=== PATIENT | female | born 1990 | race African-American/Black ===

== ENCOUNTER 2016-06-30 22:36 | Emergency (ER) | payer OTHER ==
[~2016-06-30] VITALS: Ht 157.5 cm; Wt 54.5 kg
[~2016-06-30 22:36] MED LIST: BLOOD PRESSURE MED; CEFTIN 250250 MG/TAB PO; CEFTIN500 MG PO; CEPHALEXIN500 M1 PO; CIPRO 500MG TA500 MG PO; FLAGYL500 MG PO; FLEXERIL 1010 MG/TAB PO; IBU800 M1 PO; LORTAB 5/500 501 TAB PO; MOTRIN800 MG PO; NO HOME MEDICATIONS; NORCO 325 MG-51 TAB PO; PERCOCET 325 MG1 TA2 PO; PHENERGAN 25 TA25 MG PO; PHENERGAN25 MG RC; PREDNISONE10 MG PO; PRENATAL1 TA1 PO; VICODIN 5/5001 UDTAB PO; ZOFRAN 4MG T4 MG/TAB PO; ZYRTEC10 MG PO; [UNRECOGNIZED DRUG - OTHER]
[2016-06-30 22:40] VITALS: BP 165/81; TEMP 98.7
[2016-06-30 23:07] LABS: PH 6 (5-8); SQUAMOUS EPITHELIAL 0-2 /hpf; URINE APPEARANCE Clear; URINE BACTERIA None Seen /hpf; URINE BILIRUBIN Negative (NEGATIVE); URINE BLOOD Negative (NEGATIVE); URINE COLOR Straw; URINE GLUCOSE Negative (NEGATIVE); URINE KETONE Negative (NEGATIVE); URINE RBC 0-2 /hpf; URINE UROBILINOGEN Negative (NEGATIVE); URINE WBC 0-2 /hpf
[2016-07-01] MEDS ORDERED: DOXYCYCLINE 10100 MG PO (00:30)
[2016-07-01] MEDS ORDERED: FLAGYL500 MG PO (00:30)
[2016-07-01 00:43] VITALS: PULSE 90
[2016-07-01 02:15] LABS: CHLAMYDIA/TRACH by PCR Female NOT DETECTED; NEISSERIA GON by PCR Female NOT DETECTED
== END 2016-07-01 00:43 | disposition home or self-care (01) ==
LOC: COL.ER 22:36
PROVIDERS: Physician Assistant
DX: N76.4 Abscess of vulva (principal); N76.0 Acute vaginitis
CPT/HCPCS: J0696

== ENCOUNTER 2016-07-03 23:52 | Emergency (ER) | payer OTHER ==
[~2016-07-03] VITALS: Ht 157.5 cm; Wt 54.5 kg
[~2016-07-03 23:52] MED LIST changes: +DOXYCYCLINE 10100 MG PO
[2016-07-03 23:55] VITALS: TEMP 97.7
[2016-07-04 00:51] LABS: BASO % 0.5 % (0.0-2.0); EOS # 0.1 (0.0-0.7); EOS % 1.2 % (0-4.0); GRAN # 5.2 (1.4-6.5); GRAN % 63.1 % (42.2-75.2); HEMATOCRIT 42.7 % (37.0-47.0); HEMOGLOBIN 15.1 g/dl (12.5-16.0); LYMPH # 2.4 (1.2-3.4); LYMPH % 28.9 % (20.0-51.0); MEAN CELL VOLUME 88 fl (80.0-100.0); MEAN CORPUSCULAR HEMOGLOBIN 31 pg (27.0-31.0); MEAN CORPUSCULAR HGB CONC 35 g/dl (33.0-37.0); MONO # 0.5 (0.1-0.6); MONO % 5.8 % (1.7-9.3); PLATELET COUNT 194 K/mm3 (130-400); RED BLOOD COUNT 4.85 M/mm3 (4.10-5.30); WHITE BLOOD COUNT 8.3 K/mm3 (4.8-10.8)
[2016-07-04 01:06] LABS: ADJUSTED CALCIUM 9.4 mg/dL (8.4-10.2); ALANINE AMINOTRANSFERASE 26 U/L (9-52); ALBUMIN 4.7 gm/dL (3.5-5.0); ALKALINE PHOSPHATASE 57 U/L (50-136); ANION GAP 16 mmol/L (7-16); BILIRUBIN,TOTAL 0.6 mg/dL (0.0-1.0); BLOOD UREA NITROGEN 9 mg/dL (7-17); CARBON DIOXIDE 20 mmol/L (22-30); CHLORIDE 108 mmol/L (98-107); CREATININE, serum 0.85 mg/dL (0.52-1.25); GLUCOSE 119 mg/dL (74-106); LIPASE 45 U/L (23-300); SODIUM 143 mmol/L (137-145); TOTAL PROTEIN 7.7 gm/dL (6.4-8.2)
[2016-07-04 01:07] LABS: C-REACTIVE PROTEIN 0.5 mg/dL (0.0-0.9)
[2016-07-04 01:48] LABS: PH 9 (5-8); URINE APPEARANCE Cloudy; URINE BACTERIA Rare /hpf; URINE BILIRUBIN Negative (NEGATIVE); URINE BLOOD Negative (NEGATIVE); URINE COLOR Yellow; URINE GLUCOSE Negative (NEGATIVE); URINE KETONE Negative (NEGATIVE); URINE RBC 0-2 /hpf; URINE UROBILINOGEN Negative (NEGATIVE)
[2016-07-04] MEDS ORDERED: ZOFRAN 4MG T4 MG/TAB PO (02:11)
[2016-07-04] MEDS ORDERED: K-DUR20 MEQ PO (02:11)
[2016-07-04 02:22] VITALS: BP 121/85; PULSE 68
== END 2016-07-04 02:30 | disposition home or self-care (01) ==
LOC: COL.ER 23:52
PROVIDERS: Emergency Medicine
DX: R10.84 Generalized abdominal pain (principal); E87.6 Hypokalemia; R11.2 Nausea with vomiting, unspecified; R19.7 Diarrhea, unspecified; F17.210 Nicotine dependence, cigarettes, uncomplicated
CPT/HCPCS: J2270; J2405; J2550; J7030; Q9967

== ENCOUNTER 2016-11-04 09:13 | Observation (INO) | payer OTHER ==
[2016-11-04] VITALS (527 sets, daily range): BP systolic 125–135; BP diastolic 73–88; PULSE 71–94; TEMP 98.7–100.5; O2SAT 76–100
[~2016-11-04] VITALS: Ht 162.6 cm; Wt 52.6 kg
[~2016-11-04 09:13] MED LIST changes: +K-DUR20 MEQ PO
[2016-11-04 11:00] LABS: BASO % 0.2 % (0.0-2.0); EOS % 0.2 % (0-4.0); GRAN # 3.3 (1.4-6.5); GRAN % 68.8 % (42.2-75.2); HEMATOCRIT 41.9 % (37.0-47.0); HEMOGLOBIN 14.4 g/dl (12.5-16.0); LYMPH # 1.2 (1.2-3.4); LYMPH % 25.4 % (20.0-51.0); MEAN CELL VOLUME 91 fl (80.0-100.0); MEAN CORPUSCULAR HEMOGLOBIN 31 pg (27.0-31.0); MEAN CORPUSCULAR HGB CONC 34 g/dl (33.0-37.0); MEAN PLATELET VOLUME 10.7 fl (7.4-10.4); MONO # 0.3 (0.1-0.6); MONO % 5.2 % (1.7-9.3); PLATELET COUNT 170 K/mm3 (130-400); RED BLOOD COUNT 4.63 M/mm3 (4.10-5.30); REDCELL DISTRIBUTION WIDTH-CV 11.9 % (11.5-14.5); WHITE BLOOD COUNT 4.8 K/mm3 (4.8-10.8)
[2016-11-04 11:16] LABS: ADJUSTED CALCIUM 9.2 mg/dL (8.4-10.2); ALBUMIN 4.5 gm/dL (3.5-5.0); BILIRUBIN,TOTAL 0.6 mg/dL (0.0-1.0); CALCIUM 9.6 mg/dL (8.4-10.2); CREATININE, serum 0.73 mg/dL (0.52-1.25); POTASSIUM 3.6 mmol/L (3.4-5.0); TOTAL PROTEIN 7.3 gm/dL (6.4-8.2)
[2016-11-04 11:32] LABS: PROLACTIN 12.2 ng/mL (3.0-18.6)
[2016-11-04 11:38] LABS: PH 9 (5-8); URINE APPEARANCE Hazy; URINE BACTERIA None Seen /hpf; URINE BILIRUBIN Negative (NEGATIVE); URINE BLOOD Negative (NEGATIVE); URINE COLOR Yellow; URINE GLUCOSE Negative (NEGATIVE); URINE KETONE Negative (NEGATIVE); URINE RBC 0-2 /hpf; URINE UROBILINOGEN Negative (NEGATIVE)
[2016-11-04 14:47] LABS: AMPHETAMINE URINE NEGATIVE; BARBITURATES URINE NEGATIVE; BENZODIAZEPINES URINE POSITIVE; BUPRENORPHINE URINE NEGATIVE; METHADONE URINE NEGATIVE; OPIATES URINE NEGATIVE; OXYCODONE URINE NEGATIVE; PHENCYCLIDINE URINE NEGATIVE; PROPOXYPHENE URINE NEGATIVE; THC CANNABINOIDS URINE POSITIVE
[2016-11-04 20:12] LABS: PH 5 (5-8); URINE APPEARANCE Hazy; URINE BACTERIA Moderate /hpf; URINE BILIRUBIN Negative (NEGATIVE); URINE BLOOD Negative (NEGATIVE); URINE COLOR Amber; URINE GLUCOSE Negative (NEGATIVE); URINE KETONE 1+ (NEGATIVE); URINE UROBILINOGEN Negative (NEGATIVE)
[2016-11-05] VITALS (394 sets, daily range): BP systolic 125–129; BP diastolic 71–89; PULSE 76–95; TEMP 99.2–99.8; O2SAT 34–100
== END 2016-11-05 09:05 | disposition left against medical advice (07) ==
LOC: COL.ER 09:13 → ICU 13:06
PROVIDERS: Emergency Medicine; Internal Medicine
DX: R56.9 Unspecified convulsions (principal); R10.11 Right upper quadrant pain; N39.0 Urinary tract infection, site not specified; F41.9 Anxiety disorder, unspecified; F17.210 Nicotine dependence, cigarettes, uncomplicated; F12.90 Cannabis use, unspecified, uncomplicated; F15.90 Other stimulant use, unspecified, uncomplicated
CPT/HCPCS: G0378; J2060; J2405; J2550; J7030

== ENCOUNTER 2017-01-26 07:56 | Emergency (ER) | payer SELFPAY ==
[~2017-01-26] VITALS: Ht 157.5 cm; Wt 54.5 kg
[2017-01-26 07:57] VITALS: TEMP 97.8
[2017-01-26] MEDS ORDERED: NEXPLANON68 MG ID (08:03)
[2017-01-26 08:17] LABS: BASO % 0.4 % (0.0-2.0); EOS # 0.1 (0.0-0.7); EOS % 0.9 % (0-4.0); GRAN # 7.4 (1.4-6.5); HEMATOCRIT 44.7 % (37.0-47.0); HEMOGLOBIN 15.4 g/dl (12.5-16.0); LYMPH # 2.4 (1.2-3.4); LYMPH % 22.8 % (20.0-51.0); MEAN CELL VOLUME 92 fl (80.0-100.0); MEAN CORPUSCULAR HEMOGLOBIN 32 pg (27.0-31.0); MEAN CORPUSCULAR HGB CONC 35 g/dl (33.0-37.0); MEAN PLATELET VOLUME 10.7 fl (7.4-10.4); MONO # 0.6 (0.1-0.6); MONO % 5.2 % (1.7-9.3); PLATELET COUNT 191 K/mm3 (130-400); RED BLOOD COUNT 4.87 M/mm3 (4.10-5.30); WHITE BLOOD COUNT 10.5 K/mm3 (4.8-10.8)
[2017-01-26 08:29] LABS: ADJUSTED CALCIUM 9.1 mg/dL (8.4-10.2); ALBUMIN 4.9 gm/dL (3.5-5.0); BILIRUBIN,TOTAL 0.5 mg/dL (0.0-1.0); CALCIUM 9.8 mg/dL (8.4-10.2); CREATININE, serum 0.71 mg/dL (0.52-1.25)
[2017-01-26 08:31] LABS: C-REACTIVE PROTEIN 0.5 mg/dL (0.0-0.9)
[2017-01-26 08:48] LABS: COLLECTION METHOD CLEAN CATCH
[2017-01-26 08:56] LABS: PH 8 (5-8); URINE APPEARANCE Clear; URINE BACTERIA None Seen /hpf; URINE BILIRUBIN Negative (NEGATIVE); URINE BLOOD Negative (NEGATIVE); URINE COLOR Yellow; URINE GLUCOSE Negative (NEGATIVE); URINE KETONE Negative (NEGATIVE); URINE LEUKOCYTE ESTERASE Negative (NEGATIVE); URINE PROTEIN(semi-quant) Negative (NEGATIVE); URINE RBC 0-2 /hpf; URINE UROBILINOGEN Negative (NEGATIVE); URINE WBC 0-2 /hpf
[2017-01-26] MEDS ORDERED: CELEXA 20MG20 MG/TAB PO (10:01)
[2017-01-26 10:02] VITALS: BP 112/79; PULSE 92
== END 2017-01-26 10:09 | disposition home or self-care (01) ==
LOC: COL.ER 07:56
PROVIDERS: Family Medicine
DX: R10.84 Generalized abdominal pain (principal); G40.909 Epilepsy, unspecified, not intractable, without status epilepticus
CPT/HCPCS: J1885; J2060; J2405; J2550; J7030; J7050; Q9967

== ENCOUNTER 2017-01-28 07:34 | Emergency (ER) | payer SELFPAY ==
[~2017-01-28] VITALS: Ht 157.5 cm; Wt 56.8 kg
[~2017-01-28 07:34] MED LIST changes: +CELEXA 20MG20 MG/TAB PO; +NEXPLANON68 MG ID
[2017-01-28 07:37] VITALS: TEMP 96.8
[2017-01-28 08:17] LABS: COLLECTION METHOD CLEAN CATCH
[2017-01-28 08:26] LABS: BASO % 0.4 % (0.0-2.0); EOS # 0.1 (0.0-0.7); EOS % 0.9 % (0-4.0); GRAN # 5.1 (1.4-6.5); GRAN % 66.7 % (42.2-75.2); HEMATOCRIT 42.9 % (37.0-47.0); HEMOGLOBIN 14.3 g/dl (12.5-16.0); LYMPH % 26.3 % (20.0-51.0); MEAN CELL VOLUME 94 fl (80.0-100.0); MEAN CORPUSCULAR HEMOGLOBIN 31 pg (27.0-31.0); MEAN CORPUSCULAR HGB CONC 33 g/dl (33.0-37.0); MEAN PLATELET VOLUME 11.1 fl (7.4-10.4); MONO # 0.4 (0.1-0.6); MONO % 5.3 % (1.7-9.3); PLATELET COUNT 180 K/mm3 (130-400); RED BLOOD COUNT 4.55 M/mm3 (4.10-5.30); WHITE BLOOD COUNT 7.7 K/mm3 (4.8-10.8)
[2017-01-28 08:36] LABS: PH 8 (5-8); SQUAMOUS EPITHELIAL 0-2 /hpf; URINE APPEARANCE Clear; URINE BACTERIA None Seen /hpf; URINE BILIRUBIN Negative (NEGATIVE); URINE BLOOD Negative (NEGATIVE); URINE COLOR Straw; URINE GLUCOSE Negative (NEGATIVE); URINE KETONE Negative (NEGATIVE); URINE LEUKOCYTE ESTERASE Negative (NEGATIVE); URINE PROTEIN(semi-quant) Negative (NEGATIVE); URINE RBC 0-2 /hpf; URINE UROBILINOGEN Negative (NEGATIVE); URINE WBC 0-2 /hpf
[2017-01-28 08:38] LABS: ADJUSTED CALCIUM 9.2 mg/dL (8.4-10.2); ALANINE AMINOTRANSFERASE 40 U/L (9-52); ALBUMIN 4.9 gm/dL (3.5-5.0); ALKALINE PHOSPHATASE 54 U/L (50-136); AMYLASE 80 U/L (30-110); ANION GAP 9 mmol/L (7-16); BILIRUBIN,TOTAL 0.5 mg/dL (0.0-1.0); BLOOD UREA NITROGEN 14 mg/dL (7-17); CALCIUM 9.9 mg/dL (8.4-10.2); CARBON DIOXIDE 22 mmol/L (22-30); CHLORIDE 109 mmol/L (98-107); CREATININE, serum 0.82 mg/dL (0.52-1.25); GLUCOSE 102 mg/dL (74-106); LIPASE 54 U/L (23-300); POTASSIUM 4.1 mmol/L (3.4-5.0); SODIUM 140 mmol/L (137-145); TOTAL PROTEIN 7.9 gm/dL (6.4-8.2)
[2017-01-28 08:39] LABS: C-REACTIVE PROTEIN < 0.5 mg/dL (0.0-0.9)
[2017-01-28] MEDS ORDERED: ZOFRAN 4MG T4 MG/TAB PO ×2 (09:10→09:46)
[2017-01-28] MEDS ORDERED: CELEXA 20MG20 MG/TAB PO ×2 (09:46→13:36)
[2017-01-28 09:56] VITALS: BP 123/89; PULSE 72
[2017-01-28] MEDS ORDERED: ZOFRAN ODT4 MG PO (13:36)
[2017-01-29] MEDS ORDERED: PHENERGAN 25 TA25 MG PO (10:10)
== END 2017-01-28 09:56 | disposition home or self-care (01) ==
LOC: COL.ER 07:34
PROVIDERS: Nurse Practitioner
DX: R10.84 Generalized abdominal pain (principal); F17.210 Nicotine dependence, cigarettes, uncomplicated; Z98.890 Other specified postprocedural states
CPT/HCPCS: J1885; J2550

== ENCOUNTER 2017-01-29 07:52 | Emergency (ER) | payer SELFPAY ==
[~2017-01-29] VITALS: Ht 157.5 cm; Wt 56.8 kg
[~2017-01-29 07:52] MED LIST changes: +ZOFRAN ODT4 MG PO
[2017-01-29 07:56] VITALS: BP 135/65; TEMP 97
[2017-01-29 08:32] LABS: BASO % 0.3 % (0.0-2.0); EOS % 0.3 % (0-4.0); GRAN # 6.6 (1.4-6.5); HEMATOCRIT 44.5 % (37.0-47.0); HEMOGLOBIN 15.6 g/dl (12.5-16.0); LYMPH # 1.5 (1.2-3.4); LYMPH % 17.2 % (20.0-51.0); MEAN CELL VOLUME 90 fl (80.0-100.0); MEAN CORPUSCULAR HEMOGLOBIN 32 pg (27.0-31.0); MEAN CORPUSCULAR HGB CONC 35 g/dl (33.0-37.0); MEAN PLATELET VOLUME 12.2 fl (7.4-10.4); MONO # 0.5 (0.1-0.6); MONO % 5.7 % (1.7-9.3); PLATELET COUNT 172 K/mm3 (130-400); RED BLOOD COUNT 4.96 M/mm3 (4.10-5.30); WHITE BLOOD COUNT 8.7 K/mm3 (4.8-10.8)
[2017-01-29 09:01] LABS: ADJUSTED CALCIUM 9.6 mg/dL (8.4-10.2); ALBUMIN 4.9 gm/dL (3.5-5.0); BILIRUBIN,TOTAL 0.7 mg/dL (0.0-1.0); CALCIUM 10.3 mg/dL (8.4-10.2); CREATININE, serum 0.91 mg/dL (0.52-1.25); MAGNESIUM 1.7 mg/dL (1.6-2.3); POTASSIUM 3.9 mmol/L (3.4-5.0); TOTAL PROTEIN 7.9 gm/dL (6.4-8.2)
[2017-01-29] MEDS ORDERED: PHENERGAN 25 TA25 MG PO (10:10)
[2017-01-29 10:20] VITALS: PULSE 70
[2017-01-30] MEDS ORDERED: PHENERGAN 25 TA25 MG PO (05:18)
[2017-01-30] MEDS ORDERED: NEXIUM 20MG20 MG PO (05:18)
== END 2017-01-29 10:20 | disposition home or self-care (01) ==
LOC: COL.ER 07:52
PROVIDERS: Family Medicine; Physician Assistant
DX: R10.84 Generalized abdominal pain (principal); R11.2 Nausea with vomiting, unspecified; Z98.890 Other specified postprocedural states
CPT/HCPCS: J1885; J2550; J7030

== ENCOUNTER 2017-01-30 02:44 | Emergency (ER) | payer SELFPAY ==
[~2017-01-30] VITALS: Ht 157.5 cm; Wt 56.8 kg
[2017-01-30 02:48] VITALS: TEMP 97.4
[2017-01-30 03:13] LABS: BASO % 0.2 % (0.0-2.0); EOS # 0.1 (0.0-0.7); EOS % 0.7 % (0-4.0); GRAN # 5.4 (1.4-6.5); GRAN % 65.7 % (42.2-75.2); HEMATOCRIT 43.5 % (37.0-47.0); HEMOGLOBIN 14.9 g/dl (12.5-16.0); LYMPH # 2.2 (1.2-3.4); LYMPH % 27.2 % (20.0-51.0); MEAN CELL VOLUME 91 fl (80.0-100.0); MEAN CORPUSCULAR HEMOGLOBIN 31 pg (27.0-31.0); MEAN CORPUSCULAR HGB CONC 34 g/dl (33.0-37.0); MEAN PLATELET VOLUME 11.6 fl (7.4-10.4); MONO # 0.5 (0.1-0.6); MONO % 5.8 % (1.7-9.3); PLATELET COUNT 191 K/mm3 (130-400); RED BLOOD COUNT 4.78 M/mm3 (4.10-5.30); WHITE BLOOD COUNT 8.2 K/mm3 (4.8-10.8)
[2017-01-30 03:25] LABS: ADJUSTED CALCIUM 9.5 mg/dL (8.4-10.2); ALANINE AMINOTRANSFERASE 42 U/L (9-52); ALKALINE PHOSPHATASE 57 U/L (50-136); ANION GAP 14 mmol/L (7-16); BILIRUBIN,TOTAL 0.8 mg/dL (0.0-1.0); BLOOD UREA NITROGEN 15 mg/dL (7-17); CALCIUM 10.3 mg/dL (8.4-10.2); CARBON DIOXIDE 19 mmol/L (22-30); CHLORIDE 110 mmol/L (98-107); CREATININE, serum 1.01 mg/dL (0.52-1.25); GLUCOSE 101 mg/dL (74-106); LIPASE 49 U/L (23-300); POTASSIUM 3.6 mmol/L (3.4-5.0); SODIUM 143 mmol/L (137-145); TOTAL PROTEIN 8.2 gm/dL (6.4-8.2)
[2017-01-30 03:26] LABS: C-REACTIVE PROTEIN < 0.5 mg/dL (0.0-0.9)
[2017-01-30] MEDS ORDERED: NEXIUM 20MG20 MG PO (05:18)
[2017-01-30] MEDS ORDERED: PHENERGAN 25 TA25 MG PO (05:18)
[2017-01-30 05:36] VITALS: BP 116/77; PULSE 78
== END 2017-01-30 05:39 | disposition home or self-care (01) ==
LOC: COL.ER 02:44
PROVIDERS: Emergency Medicine
DX: R10.84 Generalized abdominal pain (principal); R11.2 Nausea with vomiting, unspecified; G43.909 Migraine, unspecified, not intractable, without status migrainosus; Z98.890 Other specified postprocedural states
CPT/HCPCS: J0780; J1200; J1630; J1885; J7030

== ENCOUNTER 2017-04-12 01:19 | Emergency (ER) | payer SELFPAY ==
[~2017-04-12] VITALS: Ht 160 cm; Wt 59.7 kg
[~2017-04-12 01:19] MED LIST changes: +NEXIUM 20MG20 MG PO
[2017-04-12 01:21] VITALS: BP 131/73; PULSE 108
[2017-04-12 02:00] LABS: BASO % 0.3 % (0.0-2.0); EOS % 0.3 % (0-4.0); GRAN # 5.2 (1.4-6.5); GRAN % 84.9 % (42.2-75.2); HEMATOCRIT 43.7 % (37.0-47.0); HEMOGLOBIN 15.2 g/dl (12.5-16.0); LYMPH # 0.4 (1.2-3.4); LYMPH % 5.9 % (20.0-51.0); MEAN CELL VOLUME 90 fl (80.0-100.0); MEAN CORPUSCULAR HEMOGLOBIN 31 pg (27.0-31.0); MEAN CORPUSCULAR HGB CONC 35 g/dl (33.0-37.0); MONO # 0.5 (0.1-0.6); MONO % 8.1 % (1.7-9.3); PLATELET COUNT 148 K/mm3 (130-400); RED BLOOD COUNT 4.85 M/mm3 (4.10-5.30); REDCELL DISTRIBUTION WIDTH-CV 11.9 % (11.5-14.5)
[2017-04-12 02:06] LABS: COLLECTION METHOD CLEAN CATCH
[2017-04-12 02:12] LABS: ALBUMIN 5.1 gm/dL (3.5-5.0); BILIRUBIN,TOTAL 0.4 mg/dL (0.0-1.0); C-REACTIVE PROTEIN 2.9 mg/dL (0.0-0.9); CALCIUM 9.6 mg/dL (8.4-10.2); CREATININE, serum 0.82 mg/dL (0.52-1.25); POTASSIUM 3.5 mmol/L (3.4-5.0); TOTAL PROTEIN 8.4 gm/dL (6.4-8.2)
[2017-04-12 02:13] LABS: MUCOUS Present /lpf; PH 5 (5-8); SQUAMOUS EPITHELIAL 20-50 /hpf; URINE APPEARANCE Cloudy; URINE BACTERIA Occasional /hpf; URINE BILIRUBIN Negative (NEGATIVE); URINE BLOOD Negative (NEGATIVE); URINE COLOR Yellow; URINE GLUCOSE Negative (NEGATIVE); URINE KETONE Negative (NEGATIVE); URINE LEUKOCYTE ESTERASE Trace (NEGATIVE); URINE NITRATE Negative (NEGATIVE); URINE PROTEIN(semi-quant) 1+ (NEGATIVE)
[2017-04-12 02:25] VITALS: TEMP 98.8
[2017-04-12 02:34] LABS: ERYTHROCYTE SEDIMENTATION RATE 13 mm/hr (0-20)
[2017-04-12] MEDS ORDERED: TAMIFLU 75MG75 MG PO (02:55)
== END 2017-04-12 04:20 | disposition home or self-care (01) ==
LOC: COL.ER 01:19
PROVIDERS: Emergency Medicine
DX: J10.1 Influenza due to other identified influenza virus with other respiratory manifestations (principal)
CPT/HCPCS: J1170; J1630; J1885; J7030

== ENCOUNTER 2017-05-01 06:32 | Emergency (ER) | payer SELFPAY ==
[~2017-05-01] VITALS: Ht 157.5 cm; Wt 59.1 kg
[~2017-05-01 06:32] MED LIST changes: +TAMIFLU 75MG75 MG PO
[2017-05-01 06:35] VITALS: TEMP 97.8
[2017-05-01 07:23] LABS: BASO % 0.3 % (0.0-2.0); EOS % 0.4 % (0-4.0); GRAN # 7.2 (1.4-6.5); GRAN % 69.5 % (42.2-75.2); HEMATOCRIT 44.4 % (37.0-47.0); HEMOGLOBIN 15.2 g/dl (12.5-16.0); LYMPH # 2.2 (1.2-3.4); LYMPH % 20.9 % (20.0-51.0); MEAN CELL VOLUME 89 fl (80.0-100.0); MEAN CORPUSCULAR HEMOGLOBIN 31 pg (27.0-31.0); MEAN CORPUSCULAR HGB CONC 34 g/dl (33.0-37.0); MEAN PLATELET VOLUME 11.2 fl (7.4-10.4); MONO # 0.9 (0.1-0.6); MONO % 8.5 % (1.7-9.3); PLATELET COUNT 209 K/mm3 (130-400); RED BLOOD COUNT 4.98 M/mm3 (4.10-5.30)
[2017-05-01 07:37] LABS: ALBUMIN 5.5 gm/dL (3.5-5.0); BILIRUBIN,TOTAL 0.9 mg/dL (0.0-1.0); C-REACTIVE PROTEIN 0.9 mg/dL (0.0-0.9); CALCIUM 10.6 mg/dL (8.4-10.2); CREATININE, serum 0.75 mg/dL (0.52-1.25); POTASSIUM 3.8 mmol/L (3.4-5.0)
[2017-05-01 08:00] LABS: COLLECTION METHOD CLEAN CATCH
[2017-05-01 08:10] LABS: PH 8 (5-8); SQUAMOUS EPITHELIAL 0-2 /hpf; URINE APPEARANCE Clear; URINE BACTERIA None Seen /hpf; URINE BILIRUBIN Negative (NEGATIVE); URINE BLOOD Negative (NEGATIVE); URINE COLOR Yellow; URINE GLUCOSE Negative (NEGATIVE); URINE KETONE 1+ (NEGATIVE); URINE LEUKOCYTE ESTERASE Negative (NEGATIVE); URINE NITRATE Negative (NEGATIVE); URINE PROTEIN(semi-quant) Negative (NEGATIVE); URINE RBC 0-2 /hpf; URINE UROBILINOGEN Negative (NEGATIVE)
[2017-05-01 08:46] LABS: TRICYCLIC ANTIDEPRESS URINE NEGATIVE
[2017-05-01 08:53] VITALS: BP 112/65; PULSE 87
== END 2017-05-01 08:53 | disposition home or self-care (01) ==
LOC: COL.ER 06:32
PROVIDERS: Family Medicine
DX: F41.9 Anxiety disorder, unspecified (principal); E86.0 Dehydration; R10.84 Generalized abdominal pain; R11.2 Nausea with vomiting, unspecified; F17.210 Nicotine dependence, cigarettes, uncomplicated
CPT/HCPCS: J1630; J2550; J7030

== ENCOUNTER 2017-06-20 02:22 | Emergency (ER) | payer SELFPAY ==
[~2017-06-20] VITALS: Ht 160 cm; Wt 54.5 kg
[2017-06-20 02:29] VITALS: BP 118/78; TEMP 97.8
[2017-06-20 03:08] LABS: BASO % 0.6 % (0.0-2.0); EOS % 0.6 % (0-4.0); GRAN # 4.5 (1.4-6.5); GRAN % 61.4 % (42.2-75.2); HEMATOCRIT 46.3 % (37.0-47.0); HEMOGLOBIN 16.6 g/dl (12.5-16.0); LYMPH # 2.2 (1.2-3.4); LYMPH % 30.7 % (20.0-51.0); MEAN CELL VOLUME 88 fl (80.0-100.0); MEAN CORPUSCULAR HEMOGLOBIN 32 pg (27.0-31.0); MEAN CORPUSCULAR HGB CONC 36 g/dl (33.0-37.0); MEAN PLATELET VOLUME 10.7 fl (7.4-10.4); MONO # 0.5 (0.1-0.6); MONO % 6.3 % (1.7-9.3); PLATELET COUNT 209 K/mm3 (130-400); RED BLOOD COUNT 5.27 M/mm3 (4.10-5.30); REDCELL DISTRIBUTION WIDTH-CV 12.1 % (11.5-14.5)
[2017-06-20 03:20] LABS: ALBUMIN 5.1 gm/dL (3.5-5.0); BILIRUBIN,TOTAL 0.5 mg/dL (0.0-1.0); C-REACTIVE PROTEIN 0.9 mg/dL (0.0-0.9); CALCIUM 10.7 mg/dL (8.4-10.2); CREATININE, serum 0.8 mg/dL (0.52-1.25); POTASSIUM 3.6 mmol/L (3.4-5.0); TOTAL PROTEIN 9.7 gm/dL (6.4-8.2)
[2017-06-20 04:10] LABS: COLLECTION METHOD CLEAN CATCH
[2017-06-20 04:15] LABS: PH 8 (5-8); SQUAMOUS EPITHELIAL 0-2 /hpf; URINE APPEARANCE Clear; URINE BACTERIA None Seen /hpf; URINE BILIRUBIN Negative (NEGATIVE); URINE BLOOD Negative (NEGATIVE); URINE COLOR Yellow; URINE GLUCOSE Negative (NEGATIVE); URINE KETONE Negative (NEGATIVE); URINE LEUKOCYTE ESTERASE Negative (NEGATIVE); URINE NITRATE Negative (NEGATIVE); URINE PROTEIN(semi-quant) Negative (NEGATIVE); URINE RBC 0-2 /hpf; URINE UROBILINOGEN Negative (NEGATIVE)
[2017-06-20 04:49] VITALS: PULSE 102
== END 2017-06-20 04:48 | disposition home or self-care (01) ==
LOC: COL.ER 02:22
PROVIDERS: Emergency Medicine
DX: F41.9 Anxiety disorder, unspecified (principal); R10.13 Epigastric pain; R10.32 Left lower quadrant pain; F17.210 Nicotine dependence, cigarettes, uncomplicated; F12.90 Cannabis use, unspecified, uncomplicated; Z98.890 Other specified postprocedural states
CPT/HCPCS: J1200; J1630; J1885; J2060; J7030

== ENCOUNTER 2017-08-03 02:19 | Emergency (ER) | payer MEDICAID ==
[~2017-08-03] VITALS: Ht 157.5 cm; Wt 58.2 kg
[2017-08-03 02:30] VITALS: TEMP 97.9
[2017-08-03] MEDS ORDERED: PAXIL 20MG20 MG PO (02:33)
[2017-08-03 03:49] LABS: BASO % 0.4 % (0.0-2.0); EOS # 0.1 (0.0-0.7); EOS % 1.2 % (0-4.0); GRAN # 5.8 (1.4-6.5); HEMATOCRIT 41.1 % (37.0-47.0); HEMOGLOBIN 14.3 g/dl (12.5-16.0); LYMPH # 2.4 (1.2-3.4); LYMPH % 26.9 % (20.0-51.0); MEAN CELL VOLUME 90 fl (80.0-100.0); MEAN CORPUSCULAR HEMOGLOBIN 31 pg (27.0-31.0); MEAN CORPUSCULAR HGB CONC 35 g/dl (33.0-37.0); MEAN PLATELET VOLUME 10.5 fl (7.4-10.4); MONO # 0.7 (0.1-0.6); MONO % 7.2 % (1.7-9.3); PLATELET COUNT 184 K/mm3 (130-400); RED BLOOD COUNT 4.55 M/mm3 (4.10-5.30); REDCELL DISTRIBUTION WIDTH-CV 12.3 % (11.5-14.5)
[2017-08-03 03:58] LABS: ALBUMIN 4.4 gm/dL (3.5-5.0); BILIRUBIN,TOTAL 0.5 mg/dL (0.0-1.0); CALCIUM 9.4 mg/dL (8.4-10.2); CREATININE, serum 0.95 mg/dL (0.52-1.25); POTASSIUM 3.3 mmol/L (3.4-5.0); TOTAL PROTEIN 7.9 gm/dL (6.4-8.2)
[2017-08-03 04:07] LABS: C-REACTIVE PROTEIN 1.1 mg/dL (0.0-0.9)
[2017-08-03 04:13] LABS: COLLECTION METHOD CLEAN CATCH
[2017-08-03 04:19] LABS: MUCOUS Present /lpf; PH 8 (5-8); SQUAMOUS EPITHELIAL 0-2 /hpf; URINE APPEARANCE Clear; URINE BACTERIA None Seen /hpf; URINE BILIRUBIN Negative (NEGATIVE); URINE BLOOD 3+ (NEGATIVE); URINE COLOR Yellow; URINE GLUCOSE Negative (NEGATIVE); URINE KETONE Trace (NEGATIVE); URINE LEUKOCYTE ESTERASE Negative (NEGATIVE); URINE NITRATE Negative (NEGATIVE); URINE PROTEIN(semi-quant) Negative (NEGATIVE); URINE RBC 0-2 /hpf; URINE UROBILINOGEN Negative (NEGATIVE)
[2017-08-03] MEDS ORDERED: ZOFRAN ODT4 MG PO (04:34)
[2017-08-03 05:15] VITALS: BP 115/93; PULSE 86
== END 2017-08-03 05:15 | disposition home or self-care (01) ==
LOC: COL.ER 02:19
PROVIDERS: Physician Assistant
DX: R10.9 Unspecified abdominal pain (principal); F12.90 Cannabis use, unspecified, uncomplicated
CPT/HCPCS: J2060

== ENCOUNTER 2017-08-10 04:04 | Emergency (ER) | payer MEDICAID ==
[~2017-08-10] VITALS: Ht 157.5 cm; Wt 58.2 kg
[~2017-08-10 04:04] MED LIST changes: +PAXIL 20MG20 MG PO
[2017-08-10 04:06] VITALS: TEMP 96.7
[2017-08-10 04:27] LABS: BASO % 0.4 % (0.0-2.0); EOS % 0.4 % (0-4.0); GRAN # 8.8 (1.4-6.5); GRAN % 77.2 % (42.2-75.2); HEMATOCRIT 43.9 % (37.0-47.0); HEMOGLOBIN 15.8 g/dl (12.5-16.0); LYMPH % 17.3 % (20.0-51.0); MEAN CELL VOLUME 87 fl (80.0-100.0); MEAN CORPUSCULAR HEMOGLOBIN 31 pg (27.0-31.0); MEAN CORPUSCULAR HGB CONC 36 g/dl (33.0-37.0); MEAN PLATELET VOLUME 10.8 fl (7.4-10.4); MONO # 0.5 (0.1-0.6); MONO % 4.3 % (1.7-9.3); PLATELET COUNT 208 K/mm3 (130-400); RED BLOOD COUNT 5.03 M/mm3 (4.10-5.30)
[2017-08-10 04:40] LABS: ALBUMIN 5.1 gm/dL (3.5-5.0); BILIRUBIN,TOTAL 0.6 mg/dL (0.0-1.0); CALCIUM 10.7 mg/dL (8.4-10.2); CREATININE, serum 0.84 mg/dL (0.52-1.25); POTASSIUM 3.5 mmol/L (3.4-5.0); TOTAL PROTEIN 9.8 gm/dL (6.4-8.2)
[2017-08-10 05:19] LABS: COLLECTION METHOD CLEAN CATCH
[2017-08-10 05:25] LABS: PH 6 (5-8); SQUAMOUS EPITHELIAL None Seen /hpf; URINE APPEARANCE Clear; URINE BACTERIA None Seen /hpf; URINE BILIRUBIN Negative (NEGATIVE); URINE BLOOD Negative (NEGATIVE); URINE COLOR Straw; URINE GLUCOSE Negative (NEGATIVE); URINE KETONE 1+ (NEGATIVE); URINE LEUKOCYTE ESTERASE Negative (NEGATIVE); URINE NITRATE Negative (NEGATIVE); URINE PROTEIN(semi-quant) Negative (NEGATIVE); URINE RBC 0-2 /hpf; URINE UROBILINOGEN Negative (NEGATIVE)
[2017-08-10 06:12] VITALS: BP 123/72; PULSE 94
== END 2017-08-10 06:17 | disposition home or self-care (01) ==
LOC: COL.ER 04:04
PROVIDERS: Emergency Medicine
DX: F41.9 Anxiety disorder, unspecified (principal); R10.9 Unspecified abdominal pain; G89.29 Other chronic pain; F12.10 Cannabis abuse, uncomplicated
CPT/HCPCS: J1630; J2060; J7030; Q9967

== ENCOUNTER 2017-12-05 02:12 | Emergency (ER) | payer MEDICAID ==
[~2017-12-05] VITALS: Ht 157.5 cm; Wt 57.7 kg
[2017-12-05 02:15] VITALS: TEMP 97.6
[2017-12-05 03:06] LABS: BASO % 0.4 % (0.0-2.0); EOS # 0.1 (0.0-0.7); EOS % 1.5 % (0-4.0); GRAN # 4.8 (1.4-6.5); GRAN % 56.2 % (42.2-75.2); HEMATOCRIT 41.7 % (37.0-47.0); HEMOGLOBIN 14.5 g/dl (12.5-16.0); LYMPH % 35.1 % (20.0-51.0); MEAN CELL VOLUME 90 fl (80.0-100.0); MEAN CORPUSCULAR HEMOGLOBIN 31 pg (27.0-31.0); MEAN CORPUSCULAR HGB CONC 35 g/dl (33.0-37.0); MEAN PLATELET VOLUME 10.8 fl (7.4-10.4); MONO # 0.6 (0.1-0.6); MONO % 6.4 % (1.7-9.3); PLATELET COUNT 162 K/mm3 (130-400); RED BLOOD COUNT 4.65 M/mm3 (4.10-5.30); REDCELL DISTRIBUTION WIDTH-CV 11.9 % (11.5-14.5)
[2017-12-05 03:19] LABS: ALBUMIN 4.3 gm/dL (3.5-5.0); BILIRUBIN,TOTAL 0.4 mg/dL (0.0-1.0); C-REACTIVE PROTEIN 1.3 mg/dL (0.0-0.9); CALCIUM 9.2 mg/dL (8.4-10.2); CREATININE, serum 0.72 mg/dL (0.52-1.25); POTASSIUM 3.7 mmol/L (3.4-5.0); TOTAL PROTEIN 7.4 gm/dL (6.4-8.2)
[2017-12-05 04:20] VITALS: BP 106/60; PULSE 99
== END 2017-12-05 04:21 | disposition home or self-care (01) ==
LOC: COL.ER 02:12
PROVIDERS: Emergency Medicine
DX: G89.29 Other chronic pain (principal); R10.9 Unspecified abdominal pain; F12.90 Cannabis use, unspecified, uncomplicated; F41.9 Anxiety disorder, unspecified; Z98.890 Other specified postprocedural states
CPT/HCPCS: J1630; J2060; J7030

== ENCOUNTER 2018-02-20 04:44 | Emergency (ER) | payer MEDICAID ==
[~2018-02-20] VITALS: Ht 157.5 cm; Wt 56.8 kg
[2018-02-20 04:53] VITALS: TEMP 98.5
[2018-02-20 05:11] LABS: BASO % 0.4 % (0.0-2.0); EOS # 0.1 (0.0-0.7); EOS % 1.1 % (0-4.0); GRAN # 5.3 (1.4-6.5); GRAN % 58.4 % (42.2-75.2); HEMATOCRIT 43.9 % (37.0-47.0); HEMOGLOBIN 15.2 g/dl (12.5-16.0); LYMPH % 32.5 % (20.0-51.0); MEAN CELL VOLUME 91 fl (80.0-100.0); MEAN CORPUSCULAR HEMOGLOBIN 31 pg (27.0-31.0); MEAN CORPUSCULAR HGB CONC 35 g/dl (33.0-37.0); MEAN PLATELET VOLUME 10.5 fl (7.4-10.4); MONO # 0.7 (0.1-0.6); MONO % 7.3 % (1.7-9.3); PLATELET COUNT 186 K/mm3 (130-400); RED BLOOD COUNT 4.84 M/mm3 (4.10-5.30); REDCELL DISTRIBUTION WIDTH-CV 11.8 % (11.5-14.5)
[2018-02-20] MEDS ORDERED: ROBINUL FORTE2 MG PO (05:11)
[2018-02-20 05:20] LABS: COLLECTION METHOD CLEAN CATCH
[2018-02-20 05:22] LABS: ALBUMIN 4.8 gm/dL (3.5-5.0); BILIRUBIN,TOTAL 0.2 mg/dL (0.0-1.0); CALCIUM 10.2 mg/dL (8.4-10.2); CREATININE, serum 0.71 mg/dL (0.52-1.25); POTASSIUM 3.7 mmol/L (3.4-5.0); TOTAL PROTEIN 8.1 gm/dL (6.4-8.2)
[2018-02-20 05:25] LABS: PH 8 (5-8); SQUAMOUS EPITHELIAL 0-2 /hpf; URINE APPEARANCE Clear; URINE BACTERIA Rare /hpf; URINE BILIRUBIN Negative (NEGATIVE); URINE BLOOD Negative (NEGATIVE); URINE COLOR Yellow; URINE GLUCOSE Negative (NEGATIVE); URINE KETONE Negative (NEGATIVE); URINE LEUKOCYTE ESTERASE Negative (NEGATIVE); URINE NITRATE Negative (NEGATIVE); URINE PROTEIN(semi-quant) Negative (NEGATIVE); URINE RBC 0-2 /hpf; URINE UROBILINOGEN Negative (NEGATIVE)
[2018-02-20 06:43] VITALS: BP 122/63; PULSE 90
[2018-02-20] MEDS ORDERED: ZOFRAN ODT4 MG PO (06:46)
== END 2018-02-20 06:48 | disposition home or self-care (01) ==
LOC: COL.ER 04:44
PROVIDERS: Emergency Medicine
DX: O26.891 Other specified pregnancy related conditions, first trimester (principal); R10.9 Unspecified abdominal pain; G89.29 Other chronic pain; O99.331 Smoking (tobacco) complicating pregnancy, first trimester; F17.210 Nicotine dependence, cigarettes, uncomplicated; O99.321 Drug use complicating pregnancy, first trimester; F12.10 Cannabis abuse, uncomplicated; Z3A.01 Less than 8 weeks gestation of pregnancy
CPT/HCPCS: J1630; J2060; J2765; J7030

== ENCOUNTER 2018-02-26 04:46 | Emergency (ER) | payer OTHER ==
[~2018-02-26] VITALS: Ht 157.5 cm; Wt 56.8 kg
[~2018-02-26 04:46] MED LIST changes: +ROBINUL FORTE2 MG PO
[2018-02-26 04:49] VITALS: BP 135/79; TEMP 97
[2018-02-26 06:59] VITALS: PULSE 73
== END 2018-02-26 06:59 | disposition other institution (70) ==
LOC: COL.ER 04:46
DX: O26.891 Other specified pregnancy related conditions, first trimester (principal); O99.321 Drug use complicating pregnancy, first trimester; R10.9 Unspecified abdominal pain; G89.29 Other chronic pain; F12.90 Cannabis use, unspecified, uncomplicated; Z98.890 Other specified postprocedural states; Z3A.01 Less than 8 weeks gestation of pregnancy
CPT/HCPCS: J2270; J2405; J2550; J7030

== ENCOUNTER 2018-03-01 04:21 | Emergency (ER) | payer OTHER ==
[~2018-03-01] VITALS: Ht 157.5 cm; Wt 55.9 kg
[2018-03-01 04:25] VITALS: TEMP 97.7
[2018-03-01 04:55] LABS: COLLECTION METHOD CLEAN CATCH
[2018-03-01 05:01] LABS: MUCOUS Present /lpf; PH 7 (5-8); SQUAMOUS EPITHELIAL 0-2 /hpf; URINE APPEARANCE Clear; URINE BACTERIA Rare /hpf; URINE BILIRUBIN Negative (NEGATIVE); URINE BLOOD Negative (NEGATIVE); URINE COLOR Yellow; URINE GLUCOSE Negative (NEGATIVE); URINE KETONE Negative (NEGATIVE); URINE LEUKOCYTE ESTERASE Negative (NEGATIVE); URINE NITRATE Negative (NEGATIVE); URINE PROTEIN(semi-quant) Negative (NEGATIVE); URINE RBC 0-2 /hpf; URINE UROBILINOGEN Negative (NEGATIVE)
[2018-03-01] MEDS ORDERED: PHENERGAN 25 TA25 MG PO (06:30)
[2018-03-01 06:48] VITALS: BP 126/89; PULSE 79
== END 2018-03-01 06:54 | disposition home or self-care (01) ==
LOC: COL.ER 04:21
PROVIDERS: Emergency Medicine
DX: O26.891 Other specified pregnancy related conditions, first trimester (principal); O99.341 Other mental disorders complicating pregnancy, first trimester; K59.00 Constipation, unspecified; F41.9 Anxiety disorder, unspecified; Z98.890 Other specified postprocedural states; Z3A.01 Less than 8 weeks gestation of pregnancy
CPT/HCPCS: J2550

== ENCOUNTER 2018-03-10 15:10 | Emergency (ER) | payer MEDICAID ==
[~2018-03-10] VITALS: Ht 157.5 cm; Wt 53.2 kg
[2018-03-10 15:33] VITALS: BP 122/83; TEMP 98
[2018-03-10 16:09] LABS: COLLECTION METHOD CLEAN CATCH
[2018-03-10 16:32] LABS: MUCOUS Present /lpf; PH 5 (5-8); SQUAMOUS EPITHELIAL 0-2 /hpf; URINE APPEARANCE Clear; URINE BACTERIA None Seen /hpf; URINE BILIRUBIN Negative (NEGATIVE); URINE BLOOD Negative (NEGATIVE); URINE COLOR Yellow; URINE GLUCOSE Negative (NEGATIVE); URINE KETONE 2+ (NEGATIVE); URINE LEUKOCYTE ESTERASE Negative (NEGATIVE); URINE NITRATE Negative (NEGATIVE); URINE PROTEIN(semi-quant) 2+ (NEGATIVE); URINE RBC 0-2 /hpf; URINE UROBILINOGEN Negative (NEGATIVE)
[2018-03-10 16:32] LABS: BASO % 0.3 % (0.0-2.0); EOS % 0.2 % (0-4.0); GRAN # 5.9 (1.4-6.5); GRAN % 63.3 % (42.2-75.2); HEMATOCRIT 42.7 % (37.0-47.0); HEMOGLOBIN 15.2 g/dl (12.5-16.0); LYMPH # 2.6 (1.2-3.4); LYMPH % 27.8 % (20.0-51.0); MEAN CELL VOLUME 88 fl (80.0-100.0); MEAN CORPUSCULAR HEMOGLOBIN 31 pg (27.0-31.0); MEAN CORPUSCULAR HGB CONC 36 g/dl (33.0-37.0); MEAN PLATELET VOLUME 11.2 fl (7.4-10.4); MONO # 0.8 (0.1-0.6); PLATELET COUNT 193 K/mm3 (130-400); RED BLOOD COUNT 4.87 M/mm3 (4.10-5.30); REDCELL DISTRIBUTION WIDTH-CV 11.4 % (11.5-14.5)
[2018-03-10 16:41] LABS: BILIRUBIN,TOTAL 1.2 mg/dL (0.0-1.0); CALCIUM 10.3 mg/dL (8.4-10.2); CREATININE, serum 0.55 mg/dL (0.52-1.25); TOTAL PROTEIN 8.5 gm/dL (6.4-8.2)
[2018-03-10 18:47] VITALS: PULSE 93
== END 2018-03-10 18:47 | disposition home or self-care (01) ==
LOC: COL.ER 15:10
PROVIDERS: Physician Assistant
DX: O26.891 Other specified pregnancy related conditions, first trimester (principal); K59.00 Constipation, unspecified; Z3A.08 8 weeks gestation of pregnancy
CPT/HCPCS: J2405; J7030

== ENCOUNTER 2018-06-05 22:52 | Emergency (ER) | payer MEDICAID ==
[~2018-06-05] VITALS: Ht 157.5 cm; Wt 62.7 kg
[2018-06-05 22:55] VITALS: TEMP 97.5
[2018-06-05] MEDS ORDERED: ZOLOFT 25MG25 MG (23:02)
[2018-06-05 23:20] LABS: COLLECTION METHOD CLEAN CATCH
[2018-06-05 23:22] LABS: BASO % 0.4 % (0.0-2.0); EOS # 0.1 (0.0-0.7); EOS % 1.1 % (0-4.0); GRAN # 4.9 (1.4-6.5); GRAN % 59.7 % (42.2-75.2); HEMATOCRIT 35.9 % (37.0-47.0); HEMOGLOBIN 12.5 g/dl (12.5-16.0); LYMPH # 2.5 (1.2-3.4); LYMPH % 29.7 % (20.0-51.0); MEAN CELL VOLUME 90 fl (80.0-100.0); MEAN CORPUSCULAR HEMOGLOBIN 31 pg (27.0-31.0); MEAN CORPUSCULAR HGB CONC 35 g/dl (33.0-37.0); MEAN PLATELET VOLUME 11.3 fl (7.4-10.4); MONO # 0.7 (0.1-0.6); MONO % 8.3 % (1.7-9.3); PLATELET COUNT 169 K/mm3 (130-400); RED BLOOD COUNT 3.98 M/mm3 (4.10-5.30); REDCELL DISTRIBUTION WIDTH-CV 12.1 % (11.5-14.5)
[2018-06-05 23:34] LABS: BILIRUBIN,TOTAL 0.4 mg/dL (0.0-1.0); C-REACTIVE PROTEIN 1.6 mg/dL (0.0-0.9); CALCIUM 9.3 mg/dL (8.4-10.2); CREATININE, serum 0.45 (0.52-1.25); POTASSIUM 3.5 mmol/L (3.4-5.0); TOTAL PROTEIN 7.2 gm/dL (6.4-8.2)
[2018-06-05 23:36] LABS: PH 7 (5-8); SQUAMOUS EPITHELIAL 0-2 /hpf; URINE APPEARANCE Hazy; URINE BACTERIA None Seen /hpf; URINE BILIRUBIN Negative (NEGATIVE); URINE BLOOD Negative (NEGATIVE); URINE COLOR Straw; URINE GLUCOSE Negative (NEGATIVE); URINE KETONE 1+ (NEGATIVE); URINE LEUKOCYTE ESTERASE Negative (NEGATIVE); URINE NITRATE Negative (NEGATIVE); URINE PROTEIN(semi-quant) Negative (NEGATIVE); URINE RBC 0-2 /hpf; URINE UROBILINOGEN Negative (NEGATIVE)
[2018-06-06] MEDS ORDERED: PHENERGAN 25 TA25 MG PO (00:21)
[2018-06-06 00:32] VITALS: BP 123/68; PULSE 76
== END 2018-06-06 00:32 | disposition home or self-care (01) ==
LOC: COL.ER 22:52
PROVIDERS: Emergency Medicine
DX: O26.892 Other specified pregnancy related conditions, second trimester (principal); R10.9 Unspecified abdominal pain; G89.29 Other chronic pain; O99.322 Drug use complicating pregnancy, second trimester; F12.10 Cannabis abuse, uncomplicated; Z3A.20 20 weeks gestation of pregnancy
CPT/HCPCS: J1200; J2550

== ENCOUNTER 2018-09-29 08:47 | Outpatient (CLI) | payer MEDICAID ==
[~2018-09-29] VITALS: Ht 160 cm; Wt 68.2 kg
[~2018-09-29 08:47] MED LIST changes: +ZOLOFT 25MG25 MG
--- NOTE | 2018-09-29 08:50 | NUR ---
Pt arrives on unit via wheelchair with spouse and 2 children. Changed into clean gown. EFM and toco applied. VSS. States ctx that started at 0600. Denies LOF and vaginal bleeding. States decreased movement, but still feels movement. Pt recieves care at [facility]. Records release signed. Admission assessment completed. SVE per this RN 060/-3. Pain to touch abdomen. Dr. Plata in surgery. Notified of pt admission. Bed locked in low position. Call light within reach. No questions or concerns at this time.
[2018-09-29] MEDS ORDERED: PRENATAL MVI (09:05)
[2018-09-29 09:52] VITALS: BP 135/79; PULSE 77; TEMP 97.7
== END 2018-09-29 10:00 | disposition home or self-care (01) ==
LOC: LDRO 08:47
DX: O62.9 Abnormality of forces of labor, unspecified (principal); Z3A.37 37 weeks gestation of pregnancy

== ENCOUNTER 2019-03-26 05:58 | Emergency (ER) | payer SELFPAY ==
[~2019-03-26] VITALS: Ht 160 cm; Wt 59.1 kg
[~2019-03-26 05:58] MED LIST changes: +PRENATAL MVI
[2019-03-26 06:06] VITALS: TEMP 97.8
[2019-03-26 06:56] LABS: BASO % 0.4 % (0.0-2.0); EOS # 0.1 (0.0-0.7); EOS % 1.3 % (0-4.0); GRAN # 3.9 (1.4-6.5); GRAN % 55.7 % (42.2-75.2); HEMOGLOBIN 16.7 g/dl (12.5-16.0); LYMPH # 2.4 (1.2-3.4); LYMPH % 34.7 % (20.0-51.0); MEAN CELL VOLUME 88 fl (80.0-100.0); MEAN CORPUSCULAR HEMOGLOBIN 30 pg (27.0-31.0); MEAN CORPUSCULAR HGB CONC 34 g/dl (33.0-37.0); MONO # 0.5 (0.1-0.6); MONO % 7.6 % (1.7-9.3); PLATELET COUNT 236 K/mm3 (130-400); RED BLOOD COUNT 5.57 M/mm3 (4.10-5.30); REDCELL DISTRIBUTION WIDTH-CV 13.1 % (11.5-14.5)
[2019-03-26 07:04] LABS: ALBUMIN 5.3 gm/dL (3.5-5.0); BILIRUBIN,TOTAL 1.2 mg/dL (0.0-1.0); CALCIUM 10.3 mg/dL (8.4-10.2); CREATININE, serum 0.86 (0.52-1.25); TOTAL PROTEIN 9.1 gm/dL (6.4-8.2)
[2019-03-26 07:27] LABS: COLLECTION METHOD CLEAN CATCH
[2019-03-26] MEDS ORDERED: ZOFRAN ODT8 MG PO (07:31)
[2019-03-26] MEDS ORDERED: BENTYL 20MG20 MG/TAB PO (07:51)
[2019-03-26 07:59] LABS: MUCOUS Present /lpf; PH 5 (5-8); URINE APPEARANCE Hazy; URINE BACTERIA None Seen /hpf; URINE BILIRUBIN Negative (NEGATIVE); URINE BLOOD Negative (NEGATIVE); URINE COLOR Amber; URINE GLUCOSE Negative (NEGATIVE); URINE KETONE 1+ (NEGATIVE); URINE LEUKOCYTE ESTERASE Negative (NEGATIVE); URINE NITRATE Negative (NEGATIVE); URINE PROTEIN(semi-quant) 1+ (NEGATIVE); URINE RBC 0-2 /hpf; URINE UROBILINOGEN Negative (NEGATIVE)
[2019-03-26 08:15] VITALS: BP 111/67; PULSE 73
== END 2019-03-26 08:15 | disposition home or self-care (01) ==
LOC: COL.ER 05:58
PROVIDERS: Emergency Medicine
DX: R10.9 Unspecified abdominal pain (principal); F17.210 Nicotine dependence, cigarettes, uncomplicated; Z98.890 Other specified postprocedural states
CPT/HCPCS: J2405; J3010; J7030

== ENCOUNTER 2019-04-14 22:11 | Emergency (ER) | payer SELFPAY ==
[~2019-04-14] VITALS: Ht 157.5 cm; Wt 54.5 kg
[~2019-04-14 22:11] MED LIST changes: +BENTYL 20MG20 MG/TAB PO; +ZOFRAN ODT8 MG PO
[2019-04-14 22:31] VITALS: TEMP 97.7
[2019-04-15 00:17] LABS: ALBUMIN 5.4 gm/dL (3.5-5.0); BILIRUBIN,TOTAL 0.8 mg/dL (0.0-1.0); C-REACTIVE PROTEIN 1.2 mg/dL (0.0-0.9); CALCIUM 10.4 mg/dL (8.4-10.2); CREATININE, serum 0.88 (0.52-1.25); POTASSIUM 3.4 mmol/L (3.4-5.0)
[2019-04-15 00:24] LABS: BASO % 0.4 % (0.0-2.0); EOS # 0.1 (0.0-0.7); EOS % 0.5 % (0-4.0); GRAN # 6.3 (1.4-6.5); GRAN % 68.8 % (42.2-75.2); HEMATOCRIT 47.9 % (37.0-47.0); HEMOGLOBIN 16.5 g/dl (12.5-16.0); LYMPH # 2.1 (1.2-3.4); LYMPH % 22.8 % (20.0-51.0); MEAN CELL VOLUME 89 fl (80.0-100.0); MEAN CORPUSCULAR HEMOGLOBIN 31 pg (27.0-31.0); MEAN CORPUSCULAR HGB CONC 34 g/dl (33.0-37.0); MONO # 0.7 (0.1-0.6); MONO % 7.2 % (1.7-9.3); PLATELET COUNT 228 K/mm3 (130-400); RED BLOOD COUNT 5.38 M/mm3 (4.10-5.30); REDCELL DISTRIBUTION WIDTH-CV 13.2 % (11.5-14.5)
[2019-04-15 00:26] VITALS: BP 149/90
[2019-04-15 00:38] LABS: COLLECTION METHOD CLEAN CATCH
[2019-04-15 00:51] LABS: MUCOUS Present /lpf; PH 6 (5-8); SQUAMOUS EPITHELIAL 0-2 /hpf; URINE APPEARANCE Clear; URINE BACTERIA None Seen /hpf; URINE BILIRUBIN Negative (NEGATIVE); URINE BLOOD 2+ (NEGATIVE); URINE COLOR Yellow; URINE GLUCOSE Negative (NEGATIVE); URINE KETONE 1+ (NEGATIVE); URINE LEUKOCYTE ESTERASE Negative (NEGATIVE); URINE NITRATE Negative (NEGATIVE); URINE PROTEIN(semi-quant) Negative (NEGATIVE); URINE RBC 0-2 /hpf; URINE UROBILINOGEN Negative (NEGATIVE)
[2019-04-15 01:14] VITALS: PULSE 86
== END 2019-04-15 01:14 | disposition home or self-care (01) ==
LOC: COL.ER 22:11
PROVIDERS: Emergency Medicine
DX: R10.9 Unspecified abdominal pain (principal); F41.9 Anxiety disorder, unspecified

== ENCOUNTER 2019-07-03 02:37 | Emergency (ER) | payer MEDICAID ==
[~2019-07-03] VITALS: Ht 160 cm; Wt 59.1 kg
[2019-07-03 02:40] VITALS: TEMP 97.5
[2019-07-03 03:17] LABS: COLLECTION METHOD CLEAN CATCH
[2019-07-03 03:32] LABS: PH 9 (5-8); SQUAMOUS EPITHELIAL 0-2 /hpf; URINE APPEARANCE Clear; URINE BACTERIA Rare /hpf; URINE BILIRUBIN Negative (NEGATIVE); URINE BLOOD Negative (NEGATIVE); URINE COLOR Yellow; URINE GLUCOSE Negative (NEGATIVE); URINE KETONE Negative (NEGATIVE); URINE LEUKOCYTE ESTERASE Negative (NEGATIVE); URINE NITRATE Negative (NEGATIVE); URINE PROTEIN(semi-quant) Negative (NEGATIVE); URINE RBC 0-2 /hpf; URINE UROBILINOGEN Negative (NEGATIVE)
[2019-07-03 03:50] LABS: BASO % 0.4 % (0.0-2.0); EOS # 0.1 (0.0-0.7); EOS % 0.6 % (0-4.0); GRAN # 6.8 (1.4-6.5); GRAN % 70.5 % (42.2-75.2); HEMATOCRIT 43.9 % (37.0-47.0); LYMPH # 2.2 (1.2-3.4); LYMPH % 22.5 % (20.0-51.0); MEAN CELL VOLUME 89 fl (80.0-100.0); MEAN CORPUSCULAR HEMOGLOBIN 30 pg (27.0-31.0); MEAN CORPUSCULAR HGB CONC 34 g/dl (33.0-37.0); MEAN PLATELET VOLUME 11.4 fl (7.4-10.4); MONO # 0.6 (0.1-0.6); MONO % 5.7 % (1.7-9.3); PLATELET COUNT 166 K/mm3 (130-400); RED BLOOD COUNT 4.93 M/mm3 (4.10-5.30); REDCELL DISTRIBUTION WIDTH-CV 12.3 % (11.5-14.5)
[2019-07-03 04:00] LABS: ALBUMIN 4.6 gm/dL (3.5-5.0); BILIRUBIN,TOTAL 0.3 mg/dL (0.0-1.0); C-REACTIVE PROTEIN 0.8 mg/dL (0.0-0.9); CALCIUM 9.5 mg/dL (8.4-10.2); CREATININE, serum 0.81 (0.52-1.25); POTASSIUM 3.7 mmol/L (3.4-5.0); TOTAL PROTEIN 7.6 gm/dL (6.4-8.2)
[2019-07-03] MEDS ORDERED: COMPAZINE 110 MG/TAB PO (04:35)
[2019-07-03 04:51] VITALS: BP 126/70; PULSE 78
== END 2019-07-03 04:51 | disposition home or self-care (01) ==
LOC: COL.ER 02:37
PROVIDERS: Emergency Medicine
DX: R10.31 Right lower quadrant pain (principal); R11.2 Nausea with vomiting, unspecified; Z98.890 Other specified postprocedural states
CPT/HCPCS: J0780; J1200; J1630; J2405; J3010; J7030

== ENCOUNTER 2019-11-15 06:34 | Emergency (ER) | payer MEDICAID ==
[~2019-11-15] VITALS: Ht 157.5 cm; Wt 59.1 kg
[~2019-11-15 06:34] MED LIST changes: +COMPAZINE 110 MG/TAB PO
[2019-11-15 06:52] VITALS: BP 141/85; PULSE 65; TEMP 97.8
== END 2019-11-15 07:38 | disposition left against medical advice (07) ==
LOC: COL.ER 06:34
DX: R10.13 Epigastric pain (principal); Z53.21 Procedure and treatment not carried out due to patient leaving prior to being seen by health care provider

== ENCOUNTER 2019-12-06 03:54 | Emergency (ER) | payer MEDICAID ==
[~2019-12-06] VITALS: Ht 157.5 cm; Wt 54.5 kg
[2019-12-06 03:59] VITALS: TEMP 97.5
[2019-12-06 04:33] LABS: COLLECTION METHOD CLEAN CATCH
[2019-12-06 04:48] LABS: MUCOUS Present /lpf; PH 8 (5-8); SQUAMOUS EPITHELIAL 20-50 /hpf; URINE APPEARANCE Cloudy; URINE BACTERIA Rare /hpf; URINE BILIRUBIN Negative (NEGATIVE); URINE BLOOD 2+ (NEGATIVE); URINE COLOR Yellow; URINE GLUCOSE Negative (NEGATIVE); URINE KETONE Negative (NEGATIVE); URINE LEUKOCYTE ESTERASE 1+ (NEGATIVE); URINE NITRATE Negative (NEGATIVE); URINE PROTEIN(semi-quant) Negative (NEGATIVE); URINE RBC 0-2 /hpf; URINE UROBILINOGEN Negative (NEGATIVE)
[2019-12-06 05:13] LABS: ALBUMIN 4.5 gm/dL (3.5-5.0); BILIRUBIN,TOTAL 0.3 mg/dL (0.0-1.0); C-REACTIVE PROTEIN 0.6 mg/dL (0.0-0.9); CALCIUM 9.4 mg/dL (8.4-10.2); CREATININE, serum 0.77 (0.52-1.25); POTASSIUM 3.8 mmol/L (3.4-5.0); TOTAL PROTEIN 7.4 gm/dL (6.4-8.2)
[2019-12-06 05:18] LABS: BASO % 0.3 % (0.0-2.0); EOS % 0.1 % (0-4.0); GRAN # 6.9 (1.4-6.5); GRAN % 77.2 % (42.2-75.2); HEMATOCRIT 45.2 % (37.0-47.0); HEMOGLOBIN 15.4 g/dl (12.5-16.0); LYMPH # 1.6 (1.2-3.4); LYMPH % 17.4 % (20.0-51.0); MEAN CELL VOLUME 91 fl (80.0-100.0); MEAN CORPUSCULAR HEMOGLOBIN 31 pg (27.0-31.0); MEAN CORPUSCULAR HGB CONC 34 g/dl (33.0-37.0); MEAN PLATELET VOLUME 11.3 fl (7.4-10.4); MONO # 0.4 (0.1-0.6); MONO % 4.7 % (1.7-9.3); PLATELET COUNT 184 K/mm3 (130-400); RED BLOOD COUNT 4.97 M/mm3 (4.10-5.30); REDCELL DISTRIBUTION WIDTH-CV 12.2 % (11.5-14.5)
[2019-12-06] MEDS ORDERED: MACROBID 1100 MG/CAP PO ×2 (05:22)
[2019-12-06 05:57] VITALS: BP 122/73; PULSE 90
[2019-12-06] MEDS ORDERED: CEPHALEXIN500 M1 PO (06:06)
[2019-12-06] MEDS ORDERED: ATIVAN 1MG T1 MG/TAB PO (06:21)
[2019-12-06] MEDS ORDERED: LEXAPRO20 MG PO (06:21)
[2019-12-06] MEDS ORDERED: NEXIUM 40MG40 MG PO (06:22)
[2019-12-06] MEDS ORDERED: MINIPRESS2 MG (06:22)
[2019-12-06] MEDS ORDERED: INDERAL 20MG20 MG PO (06:22)
== END 2019-12-06 07:30 | disposition home or self-care (01) ==
LOC: COL.ER 03:54
PROVIDERS: Emergency Medicine
DX: R10.30 Lower abdominal pain, unspecified (principal); F41.9 Anxiety disorder, unspecified; Z32.02 Encounter for pregnancy test, result negative
CPT/HCPCS: J1200; J1790; J7030

== ENCOUNTER 2020-06-17 09:53 | Emergency (ER) | payer MEDICAID ==
[~2020-06-17] VITALS: Ht 157.5 cm; Wt 63.6 kg
[~2020-06-17 09:53] MED LIST changes: +ATIVAN 1MG T1 MG/TAB PO; +INDERAL 20MG20 MG PO; +LEXAPRO20 MG PO; +MACROBID 1100 MG/CAP PO; +MINIPRESS2 MG; +NEXIUM 40MG40 MG PO
[2020-06-17 09:59] VITALS: BP 138/90; PULSE 96; TEMP 97.2
[2020-06-17] MEDS ORDERED: DITROPAN 5MG TAB5 MG PO (10:10)
== END 2020-06-17 10:44 | disposition home or self-care (01) ==
LOC: COL.ER 09:53
DX: S61.011A Laceration without foreign body of right thumb without damage to nail, initial encounter (principal); F41.9 Anxiety disorder, unspecified; F17.210 Nicotine dependence, cigarettes, uncomplicated; W25.XXXA Contact with sharp glass, initial encounter; Y93.G1 Activity, food preparation and clean up

== ENCOUNTER → 2020-07-02 | Outpatient (CLI) | payer MEDICAID ==
[~2020-07-02] MED LIST changes: +DITROPAN 5MG TAB5 MG PO
[2020-07-02 12:52] VITALS: BP 122/87; PULSE 96; TEMP 98.8
== END ==
LOC: COL.ER 12:45
DX: Z48.02 Encounter for removal of sutures (principal)

== ENCOUNTER 2021-06-14 19:37 | Emergency (ER) | payer MEDICAID ==
[~2021-06-14] VITALS: Ht 157.5 cm; Wt 59.1 kg
[2021-06-14] MEDS ORDERED: AMOXICILLIN 8751 TAB PO (19:51)
[2021-06-14 20:15] VITALS: BP 156/107; PULSE 96; TEMP 98
== END 2021-06-14 20:15 | disposition home or self-care (01) ==
LOC: COL.ER 19:37
DX: K04.7 Periapical abscess without sinus (principal); F17.210 Nicotine dependence, cigarettes, uncomplicated
CPT/HCPCS: J1885

== ENCOUNTER 2023-12-17 08:37 | Emergency (ER) | payer MEDICAID ==
[~2023-12-17] VITALS: Ht 157.5 cm; Wt 54.5 kg
[~2023-12-17 08:37] MED LIST changes: +AMOXICILLIN 8751 TAB PO
[2023-12-17 10:04] LABS: COLLECTION METHOD CLEAN CATCH
[2023-12-17 10:17] LABS: BASO % 0.5 % (0.0-2.0); EOS # 0.1 K/mm3 (0.0-0.7); EOS % 0.9 % (0.0-4.0); GRAN # 3.2 K/mm3 (1.4-6.5); GRAN % 56.5 % (42.2-75.2); HEMATOCRIT 44.3 % (37.0-47.0); LYMPH # 1.9 K/mm3 (1.2-3.4); LYMPH % 33.9 % (20.0-51.0); MEAN CELL VOLUME 92 fl (80.0-100.0); MEAN CORPUSCULAR HEMOGLOBIN 31 pg (27-31); MEAN CORPUSCULAR HGB CONC 34 g/dl (33.0-37.0); MEAN PLATELET VOLUME 11.5 fl (7.4-10.4); MONO # 0.4 K/mm3 (0.1-0.6); MONO % 7.8 % (1.7-9.3); PLATELET COUNT 164 K/mm3 (130-400); RED BLOOD COUNT 4.82 M/mm3 (4.10-5.30)
[2023-12-17 10:26] LABS: PH 6.5 (5.0-8.5); URINE APPEARANCE CLEAR (CLEAR/HAZY); URINE BLOOD 3+ (NEGATIVE); URINE COLOR YELLOW (YELLOW); URINE GLUCOSE NEGATIVE (NEGATIVE); URINE KETONE NEGATIVE (NEGATIVE); URINE NITRATE NEGATIVE (NEGATIVE); URINE PROTEIN(semi-quant) NEGATIVE (NEGATIVE); URINE UROBILINOGEN 0.2 E.U/dL (0.2-1.0)
[2023-12-17 10:33] LABS: ALBUMIN 4.5 g/dL (3.5-5.0); BILIRUBIN,TOTAL 0.4 mg/dL (0.2-1.2); CALCIUM 10.2 mg/dL (8.4-10.2); CREATININE, serum 0.87 mg/dL (0.57-1.11); POTASSIUM 3.9 mEq/L (3.5-4.5); TOTAL PROTEIN 7.9 g/dl (6.2-8.1)
[2023-12-17 11:41] VITALS: BP 125/88; PULSE 85; TEMP 97.4
== END 2023-12-17 11:41 | disposition home or self-care (01) ==
LOC: COL.ER 08:37
PROVIDERS: Family Medicine
DX: N75.0 Cyst of Bartholin's gland (principal)